=== PATIENT | female | born 2000 | race Caucasian/White ===

== ENCOUNTER → 2018-10-12 13:21 | Outpatient (CLI) | payer BC, SELFPAY ==
[2018-10-08 12:20] VITALS: BMI 21.7
--- NOTE | 2018-10-12 13:24 | US_ITS ---
STUDY: ULTRASOUND BREAST - RIGHT REASON FOR EXAM: Female, 18 years old. TECHNIQUE: Axial and longitudinal images of the RIGHT breast were performed with a high resolution ultrasound transducer. COMPARISON: None. FINDINGS: RIGHT Breast: No evidence of any masses or cyst in either breast. No significantly enlarged lymph nodes in the axillary areas on either side either. US/Breast Limited Unilateral IMPRESSION: Negative ultrasound of both breasts. Electronically Signed: Bran Santos, at 9:53 EDT Tel , Service support ,
== END ==
PROVIDERS: Referring Provider Nurse Practitioner Women's Health; Visit Provider Nurse Practitioner Women's Health
DX: N63.20 Unspecified lump in the left breast, unspecified quadrant (principal); N63.10 Unspecified lump in the right breast, unspecified quadrant
CPT/HCPCS: 76642

== ENCOUNTER → 2019-05-07 15:30 | Outpatient (CLI) | payer BC, SELFPAY ==
[2019-05-07 15:20] VITALS: BMI 22.2
[2019-05-07 16:39] LABS: NATERA MAILED SPECIMEN
[2019-05-07 17:24] LABS: Absolute Lymphocyte Count 1.85 X10^3/uL (0.83-4.51); Absolute Neutrophil Count 5.4 X10^3/uL (2.0-7.7); Basophil# 0.05 X10^3/uL; Basophil% 0.6 % (0-1); Eosinophil# 0.05 X10^3/uL; Eosinophils% 0.6 % (0-5); Hematocrit 36.5 % (37-47); Hemoglobin 12.9 g/dL (12.0-15.0); Lymphocyte # 1.85 X10^3/ul (4.0); Lymphocyte % 23.4 % (19-41); Mean Corp Hgb Conc 35.3 g/dL (32-36); Mean Corpuscular Hgb 32.7 pg (27.0-32.0); Mean Corpuscular Volume 92.4 fL (81-99); Mean Platelet Vol. 9.3 fl (6.2-12.0); Monocyte% 6.3 % (0-10); NRBC Flagged by Analyzer 0 % (0-5); Neutrophil # 5.41 X10^3/uL (2.7-7.7); Neutrophil % 68.6 % (47-70); Platelet Count 201 K/mm3 (150-450); RBC Distribution Width CV 11.8 % (11.6-14.6); RBC Distribution Width SD 39.8 fl (35.1-43.9); Red Blood Count 3.95 M/mm3 (4.2-5.4); White Blood Count 7.9 K/mm3 (4.4-11.0)
[2019-05-07 20:25] LABS: Chlamydia Trachomatis by PCR Negative (Negative); Neisserai gonorrhoeae by PCR Negative (Negative); Probe Check PASS; Sample Adequacy Control PASS; Specimen Processing Control PASS
[2019-05-08 10:45] LABS: HIV - WCH Non-Reactive (Nonreactive); Hepatitis B Surface Antigen Non-Reactive (Nonreactive); Hepatitis C Antibody Non-Reactive (Nonreactive); Rubella IgG 81.9 IU/mL
[2019-05-09 02:56] LABS: Rapid Plasmin Reagin (RPR) NONREACTIVE (NONREACTIVE)
== END ==
PROVIDERS: Referring Provider Obstetrics & Gynecology; Visit Provider Obstetrics & Gynecology
DX: Z34.81 Encounter for supervision of other normal pregnancy, first trimester (principal)
CPT/HCPCS: 36415; 85025; 86592; 86703; 86762; 86803; 86850; 86900; 86901; 87086; 87340; 87491; 87591

== ENCOUNTER → 2019-08-28 11:36 | Outpatient (CLI) | payer BC, SELFPAY ==
[2019-08-27 14:04] VITALS: BMI 22.2
[2019-08-28 12:08] LABS: Absolute Lymphocyte Count 1.47 X10^3/uL (0.83-4.51); Absolute Neutrophil Count 7.3 X10^3/uL (2.0-7.7); Basophil# 0.06 X10^3/uL; Basophil% 0.6 % (0-1); Eosinophil# 0.08 X10^3/uL; Eosinophils% 0.8 % (0-5); Hematocrit 33.3 % (37-47); Hemoglobin 11.5 g/dL (12.0-15.0); Lymphocyte # 1.47 X10^3/ul (4.0); Lymphocyte % 15.5 % (19-41); Mean Corp Hgb Conc 34.5 g/dL (32-36); Mean Corpuscular Volume 95.4 fL (81-99); Mean Platelet Vol. 8.6 fl (6.2-12.0); Monocyte# 0.53 X10^3/uL; Monocyte% 5.6 % (0-10); NRBC Flagged by Analyzer 0 % (0-5); Neutrophil # 7.26 X10^3/uL (2.7-7.7); Neutrophil % 76.8 % (47-70); Platelet Count 166 K/mm3 (150-450); RBC Distribution Width CV 12.7 % (11.6-14.6); RBC Distribution Width SD 44.1 fl (35.1-43.9); Red Blood Count 3.49 M/mm3 (4.2-5.4); White Blood Count 9.5 K/mm3 (4.4-11.0)
[2019-08-28 12:23] LABS: Glucose Challenge Gest 1H 50g 88 mg/dL (70-140)
== END ==
PROVIDERS: Referring Provider Nurse Practitioner Women's Health; Visit Provider Nurse Practitioner Women's Health
DX: Z34.90 Encounter for supervision of normal pregnancy, unspecified, unspecified trimester (principal)
CPT/HCPCS: 36415; 82950; 85025

== ENCOUNTER → 2019-10-31 15:11 | Outpatient (CLI) | payer BC, SELFPAY ==
[2019-10-31 13:57] VITALS: BMI 22.2
== END ==
PROVIDERS: Referring Provider Obstetrics & Gynecology; Visit Provider Obstetrics & Gynecology
DX: Z34.02 Encounter for supervision of normal first pregnancy, second trimester (principal)
CPT/HCPCS: 87081

== ENCOUNTER → 2019-11-11 10:49 | Outpatient (CLI) | payer BC, SELFPAY ==
[2019-11-07 14:10] VITALS: BMI 22.2
== END ==
PROVIDERS: Referring Provider Obstetrics & Gynecology; Visit Provider Obstetrics & Gynecology
DX: Z11.59 Encounter for screening for other viral diseases (principal)
CPT/HCPCS: 87635; G2023; U0003

== ENCOUNTER 2019-11-18 07:00 | Inpatient (IN) | payer BC, MEDICAID, SELFPAY ==
[2019-11-14 13:57] VITALS: BMI 27.6
[2019-11-18] VITALS (11 sets, daily range): BP systolic 117–132; BP diastolic 73–90; PULSE 62–76; TEMP 36.2–37.2; O2SAT 98–99; BMI 28.6
--- NOTE | 2019-11-18 08:00 | HP.PCM_ITS ---
- Problem List (1) Circumvallate placenta Status: Acute Qualifiers: Comment: multiple lagging long bones and growth restriction. Growth US on 10/09 AC 4% short long bones EFW 12% (2) IUGR (intrauterine growth restriction) Status: Acute Comment: US q4 wks anatomy/growth, 2x wkly BPP with wkly UA doppler @ MFM. plan IOL 39 weeks (3) PUPP (pruritic urticarial papules and plaques of ) Status: Acute Comment: hydrocortisone, offered steroid pack PRN (4) Status: Acute Qualifiers: Comment: Low risk female genetics, declined carrier and afp screening. 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 @ 39 weeks presents for IOL secondary to IUGR. OB Visit PRAVIN Calculator Estimated Delivery Date Method Current WG Current Estimate 11/24/19 LMP (Certain) 38w 4d Other Estimates 11/27/19 Manual 38w 1d CRL 3.5mm FHT 175 Expected Delivery Route/Plan Labor Preferences- labor support person: Max pain management options preferred: epidural cut cord/dad catch: cord : yes PP control planned: [] discussed possible routes of delivery and associated risks: [] special requests: [] Specific Issue/Plans flu vaccine: given tdap vaccine: given rhogam: NA LARC form signed: yes movement and labor precautions reviewed. Problem list reviewed and updated with the most current plan of care details and appropriate orders placed. Relevant counseling for the gestational age provided. Continue routine care and follow up unless otherwise noted in visit notes/problem list details Initial Weight: 125 lb Date EGA Weight BP Urine Prot Glucose FHR FuHt Pres Dilation Effaced St Visit Note 05/07/19 11w 2d 129 lb 8 oz (+4 lb 8 oz) 108/62 06/04/19 15w 2d 132 lb 8 oz (+7 lb 8 oz) 125/86 Negative Negative 140 SM- no vb cramping 07/02/19 19w 2d 137 lb (+12 lb) 118/82 Negative Negative 145 SM- no vb cramping 07/30/19 23w 2d 142 lb (+17 lb) 112/78 Negative Negative 158 23 MH-Doing well. NO VB, LOF. Good FM. Enc virtual CB classes. MH-Doing well. NO VB, LOF. Good FM. Enc virtual CB classes. 4 wk follow up US scheduled 08/27/19 27w 2d 150 lb 2 oz (+25 lb 2 oz) 118/78 Negative Negative 161 27 MH-Good FM, No VB, LOF. Will come back tomorrow for 28 wk labs. Enc CB class. Growth US 09/1109/12/19 29w 4d 149 lb (+24 lb) 100/74 Negative Negative 147 28 MH-No VB, LOF. Nl 28 wk labs. Tdap today. US today 09/24/19 31w 2d 152 lb 2 oz (+27 lb 2 oz) 104/78 Negative Negative 143 30 MH-No VB, LOF. Good FM. Seeing MFM weekly, BPP and growth US Q4w 10/10/19 33w 4d 156 lb (+31 lb) 116/70 150 33 Cephalic SM- no vb lof good fm no regular ctx 10/17/19 34w 4d 159 lb (+34 lb) 122/70 Negative Negative 140 Cephalic SM- no vb lof good fm no regular ctx. discussed pupps rash 10/24/19 35w 4d 159 lb 4 oz (+34 lb 4 oz) 116/58 Negative Negative 140 Cephalic SM- no vb lof good fm no regular ctx reassuring testing, pupps improved 10/31/19 36w 4d 160 lb 4 oz (+35 lb 4 oz) 124/80 Negative Negative 140 35 Cephalic 0 SM- discussed testing and continue 2x weekly and plan delivery at 39 weeks if reassuring 11/07/19 37w 4d 159 lb 2 oz (+34 lb 2 oz) 108/60 Negative Negative 141 36 Cephalic 0 MH: Cont testing 2Xwk. No VB, LOF. Good FM. MH: Cont testing 2Xwk with MFM. No VB, LOF. Good FM. IOL at 39 wk 11/14/19 38w 4d 161 lb (+36 lb) 122/88 Negative Negative 140 37 Cephalic 0 plan IOL 39 weeks ACOG First Trimester First Trimester: Desire for , Alcohol, Tobacco Cessation, Illicit/Recreational Drug/Substance Use, Intimate Partner Violence, Barriers to care, Unstable Housing, Communication Barriers, Environmental/Work Hazards, Anticipated Course of Care, Toxoplasmosis Precations, Use of Any medications, Sexual activity, Exercise, Dental Care, Sauna/Hot tub use, Seat Belt use, Childbirth classes/Hospital facilities, , Travel, Indications for US and Screening for Aneuploidy Second Trimester Second Trimester: Signs and Symptoms of Labor, Selecting a care provider, Reproductive Life Planning, Care Planning, Tobacco Cessation, Depression/Anxiety and Intimate Partner Violence Third Trimester Third Trimester: Pain Management Plans, Labor support person(s), Immediate Larc, Movement Monitoring and Feeding Yes ; discussed Trial of Labor after Counseling or discussed Circumcision preference Diagnostics Diagnostics Diagnostics Glucose 1 Hr 50 gm 88 mg/dL (70-140) 08/28/19 Hgb 11.5 g/dL (12.0-15.0) L 08/28/19 Hct 33.3 % (37-47) L 08/28/19 Details: HIV: Urine Culture: Sequential Screen: NIPT Screen: ROS Const Reports system reviewed and no additional complaints, except as docu Card Reports system reviewed and no additional complaints, except as docu Resp Reports system reviewed and no additional complaints, except as docu GI Reports system reviewed and no additional complaints, except as docu, Reports nausea Reports system reviewed and no additional complaints, except as docu Musc Reports system reviewed and no additional complaints, except as docu Exam Const General: cooperative, healthy appearing, comfortable, anxious HENCA Head: normal to inspection Nose: external nose normal Face and sinus: normal facial exam Neck Neck: normal visual inspection, full ROM, no lymphadenopathy Thyroid: thyroid normal Chest Chest palpation & inspection: normal inspection of the chest Resp Effort & Inspection: normal respiratory effort GI Inspection: normal to inspection Palpation: soft, other (gravid uterus) Other: vertex and appropriate size for gestational age Other: Cervical Exam: Extrem General: pedal edema Results POC Urinalysis 2 Dip (Clinic) Office Urine Glucose Negative Last Edit by Bethanie Tello on 11/14/19 14:0 2 Office Urine Protein Negative Last Edit by Bethanie Tello on 11/14/19 14:0 2 Assessment & Plan Orders Orders: POC Urinalysis 2 Dip (Clinic) Today 19 yo @ 39 weeks presents for iOL secondary to IUGR. Patient presents IOL, plan management for with Pitocin and FB after cytotec Pain management: plans epidural] GBS negative Management of any complications: IUGR- reassuring testing. I have reviewed the [facility] and made any clinically relevant updates.
[2019-11-18] MEDS: Lactated Ringers 1,000 ML 50 ML IV (09:05)
[2019-11-18 09:19] LABS: Absolute Lymphocyte Count 1.86 X10^3/uL (0.83-4.51); Absolute Neutrophil Count 6.2 X10^3/uL (2.0-7.7); Basophil# 0.04 X10^3/uL; Basophil% 0.5 % (0-1); Eosinophil# 0.07 X10^3/uL; Eosinophils% 0.8 % (0-5); Hematocrit 33.6 % (37-47); Hemoglobin 12.1 g/dL (12.0-15.0); Lymphocyte # 1.86 X10^3/ul (4.0); Mean Corpuscular Hgb 33.1 pg (27.0-32.0); Mean Corpuscular Volume 91.8 fL (81-99); Mean Platelet Vol. 9.3 fl (6.2-12.0); Monocyte# 0.66 X10^3/uL; Monocyte% 7.4 % (0-10); NRBC Flagged by Analyzer 0 % (0-5); Neutrophil # 6.18 X10^3/uL (2.7-7.7); Neutrophil % 69.7 % (47-70); Platelet Count 154 K/mm3 (150-450); RBC Distribution Width CV 12.3 % (11.6-14.6); RBC Distribution Width SD 40.7 fl (35.1-43.9); Red Blood Count 3.66 M/mm3 (4.2-5.4); White Blood Count 8.9 K/mm3 (4.4-11.0)
[2019-11-18] MEDS: miSOPROStol 25 MCG TABLET VAGINAL (09:20)
[2019-11-18] MEDS: miSOPROStol 50 MCG TABLET VAGINAL ×2 (13:45→20:02)
[2019-11-18] MEDS: 0.9% Saline Lock 10 ML Syringe IV (22:42)
[2019-11-19] VITALS (50 sets, daily range): BP systolic 92–136; BP diastolic 48–91; PULSE 60–170; RESP 15–18; TEMP 36.1–37.2; O2SAT 94–100
[2019-11-19] MEDS: 0.9% Saline Lock 10 ML Syringe IV ×2 (01:40→03:48)
[2019-11-19] MEDS: Lactated Ringers 500 ML 999 ML IV ×3 (01:42→04:36)
[2019-11-19] MEDS: 0.9% Normal Saline Single 100 ML IV.SOLN. IY (02:49)
[2019-11-19] MEDS: Ondansetron 4 MG/2 ML Vial IV ×2 (03:48→13:01)
[2019-11-19] MEDS: fentaNYL-bupivacaine (epidural) 100 ML BAG EPIDURAL (04:20)
[2019-11-19] MEDS: Terbutaline 1 MG/ML Vial 0.25 MG SC (05:27)
--- NOTE | 2019-11-19 05:30 | PCM.PN.BLA ---
Progress Note patient underwent several doses of cytotec, and made change to .5 cm, but had intermittent variables and several periods of recurrent late decels, heart bulb was placed, no pitocin was started, and afte two hours the heart bulb was removed due to recurrent variable decels and prolonged decleration, arom blood tinged fluid with 3/60/-1, fse and IUPC placed, terbutaline given. position changes and oxygen given, persistent cat II tracing with recurrent late decels recommend proceeding with immediate primary for intolerance to labor, persistent cat II tracing. STROKE Vital Signs/Narrative: Vital Signs Temp Pulse BP Pulse Ox 11/19/19 05:27 77 99 11/19/19 05:22 67 99 11/19/19 05:17 78 100 11/19/19 05:12 71 99 11/19/19 05:07 68 99 11/19/19 05:05 97.7 F L 11/19/19 05:02 72 100 11/19/19 05:00 66 117/65 11/19/19 04:57 67 100 11/19/19 04:54 64 124/74 H 11/19/19 04:52 69 100 11/19/19 04:50 71 121/70 H 11/19/19 04:47 74 11/19/19 04:45 72 129/68 H 11/19/19 04:42 77 100 11/19/19 04:39 71 121/77 H 11/19/19 04:37 85 99 11/19/19 04:35 67 111/66 11/19/19 04:32 71 99 11/19/19 04:30 71 107/52 L 11/19/19 04:27 75 97 11/19/19 04:24 71 114/64 11/19/19 04:22 76 98 11/19/19 04:19 81 119/73 11/19/19 04:17 170 H 99 11/19/19 04:14 70 125/76 H 11/19/19 04:12 74 99 11/19/19 04:09 81 136/82 H 11/19/19 04:07 72 99 11/19/19 04:04 75 136/84 H 11/19/19 04:02 83 99 11/19/19 03:57 93 99 11/19/19 02:36 97.3 F L 76 125/84 H
[2019-11-19] MEDS: Sodium Citrate/Citric Acid 30 ML UDC PO (05:31)
[2019-11-19] MEDS: Cefazolin 2 GM in 0.9% Normal Saline 100 ML IV (05:40)
[2019-11-19] MEDS: Oxytocin 30 units/NS 500 ml 30 UNITS/500 ML IV.SOLN 167 UNITS IV (06:50)
--- NOTE | 2019-11-19 06:51 | OP.PCM_ITS ---
Problem List (1) Circumvallate placenta Status: Acute Qualifiers: Comment: multiple lagging long bones and growth restriction. Growth US on 10/09 AC 4% short long bones EFW 12% (2) IUGR (intrauterine growth restriction) Status: Acute Comment: US q4 wks anatomy/growth, 2x wkly BPP with wkly UA doppler @ MFM. plan IOL 39 weeks (3) PUPP (pruritic urticarial papules and plaques of ) Status: Acute Comment: hydrocortisone, offered steroid pack PRN (4) Status: Acute Qualifiers: Comment: Low risk female genetics, declined carrier and afp screening. Normal anatomy (5) Supervision of high-risk Status: Acute Comment: PRR PRAVIN 11/24/19 girl Brea boyfrienmary Rehman COVID neg 11/10 Delivery Classification: ALFREDITO Final PRAVIN: 11/24/19 Gestational age: 39 Weeks and 2 Days nursing care partner: Anand Lee Type of Anesthesia:: Epidural Special Medications: ella Implants Used: none Date of Procedure: 11/19/19 Pre-Operative Diagnosis: nrfhts iugr remote from delivery Post-Operative Diagnosis: same Indications for : Distress Description of Procedure: The patient was placed in the dorsal supine position with leftward tilt. Patient was prepped and draped in the normal sterile fashion. Pfannenstiel skin incision was made with the scalpel and carried through to the underlying layer of fascia with the scalpel. Fascia was nicked in the midline and the incision extended laterally. The rectus bellies were dissected off superiorly and inf eriorly with out complication both bluntly. The peritoneum was entered digitally. The incision was stretched and a low transverse uterine incision was made with the scalpel. The 's head was delivered atraumatically followed by the anterior and posterior shoulders without complication the rest of the infant delivered. The cord was clamped and cut and the infant was handed off to awaiting nurse. The placenta was delivered spontaneously immediately following and was noted to be intact and have a three-vessel cord. The uterus was exteriorized cleared of all clots and debris, and the incision was closed in a double layer closure using #1 Monocryl. The ovaries and fallopian tubes were noted to be within normal limits. The uterus was returned to the maternal abdomen and gutters were cleared of all clots and debris. The peritoneum was closed with 3-0 Monocryl in a running fashion. Gloves were changed prior to fascial closure. Fascia was closed with 0 PDS in a running fashion. Subcutaneous tissue was copiously irrigated and the skin was closed with 3-0 Monocryl in a subcuticular fashion. Mepilex dressing was applied without complication. Patient was taken to recovery in stable condition. It was discussed with the patient that based on the clinical information obtained during this encounter, combined with her history, at this time I would recommend vaginal or cesareans for future deliveries if further pregnancies are desired. Amniotic Membrane Rupture Type: Artificial Amniotic Fluid Description: Clear Placenta Disposition: [facility] Fluids Replaced: crystalloid Cord Entanglement: None Cord Vessel Description: 3 Vessels Esitmated Blood Loss (ml): 500 Gender: Female (1 minute): 9 (5 minute): 9 Delayed cord clamping: Yes Antibiotic Given: Ancef 2 grams IV x1, Zithromax 500 mg/5 mL X1 Pt instructed on risks of surgery: Bleeding, Anesthesia Risks, Infection, Need for Future C-Sections, Injury to surrounding structure(s) including bowel and bladder Complications: None - Admit VTE Documentation VTE Present on Admission: No VTE Mechan Device Prophylaxis: SCD's Multi Select Codes - Urinary/Genital Urinary/Genital CPT Codes: 79955 [facility]
[2019-11-19] MEDS: Senna/Docusate Sodium 1 Tablet PO (08:57)
[2019-11-19] MEDS: Acetaminophen 500 MG Tablet 1000 MG PO ×3 (08:57→20:51)
[2019-11-19] MEDS: Lactated Ringers 1,000 ML 100 ML IV (10:04)
[2019-11-19] MEDS: Ketorolac 30 MG/ML Syringe IV ×2 (12:05→17:44)
--- NOTE | 2019-11-19 13:14 | NURSING ---
1300 pt vomiting multiple times-pt medicated bed changed
[2019-11-20 00:11] VITALS: BP 117/69; PULSE 68; RESP 16; TEMP 36.9
[2019-11-20] MEDS: Ketorolac 30 MG/ML Syringe IV ×2 (00:27→05:57)
[2019-11-20] MEDS: 0.9% Saline Lock 10 ML Syringe IV ×2 (00:27→05:57)
[2019-11-20 03:07] VITALS: BP 92/57; PULSE 59; RESP 12; TEMP 36.6
[2019-11-20] MEDS: Acetaminophen 500 MG Tablet 1000 MG PO ×4 (03:08→21:14)
[2019-11-20 05:39] LABS: Hematocrit 24.8 % (37-47); Hemoglobin 8.8 g/dL (12.0-15.0); Mean Corp Hgb Conc 35.5 g/dL (32-36); Mean Corpuscular Hgb 32.8 pg (27.0-32.0); Mean Corpuscular Volume 92.5 fL (81-99); Mean Platelet Vol. 9.2 fl (6.2-12.0); Platelet Count 112 K/mm3 (150-450); RBC Distribution Width CV 12.4 % (11.6-14.6); RBC Distribution Width SD 41.1 fl (35.1-43.9); Red Blood Count 2.68 M/mm3 (4.2-5.4); White Blood Count 15.8 K/mm3 (4.4-11.0)
[2019-11-20 08:00] VITALS: BP 91/61; PULSE 75; RESP 18; TEMP 37.1; O2SAT 98
[2019-11-20] MEDS: Senna/Docusate Sodium 1 Tablet PO (09:00)
--- NOTE | 2019-11-20 11:05 | PCM.PN.OB ---
Subjective: doing well no complaints pain controlled no CP SOB N V ambulating well tolerating po lochia moderate, going well - Physical Exam Vitals/I&O's: Vital Signs Temp Pulse Resp BP Pulse Ox 98.7 F 75 18 91/61 98 11/20/19 08:00 11/20/19 08:00 11/20/19 08:00 11/20/19 08:00 11/20/19 08:00 Oxygen Delivery Method Room Air Weight: 161 lb 13.109 oz Body Mass Index (BMI) 28.6 Intake and Output for Last 24 Hours 11/18/19 11/19/19 11/20/19 23:59 23:59 23:59 Intake Total 95.83 / 95.83 3997.50 / 3997.50 Output Total 2250 / 2250 1600 / 1600 Balance 95.83 / 95.83 1747.50 / 1747.50 -1600 / -1600 General: Alert, Oriented x3 Laboratory Results 11/20/19 05:30: WBC 15.8 H, RBC 2.68 L, Hgb 8.8 L, Hct 24.8 L, MCV 92.5, MCH 32.8 H, MCHC 35.5, RDW Std Deviation 41.1, RDW Coeff of Nando 12.4, Plt Count 112 L, MPV 9.2 Current Medications Acetaminophen (Tylenol) 1,000 mg PO Q6H NAT Last Admin: 11/20/19 09:01 Dose: 1,000 mg Documented by: Bisacodyl (Dulcolax) 10 mg RECTAL UD PRN PRN Reason: If no BM Hydrocortisone (Hytone) 1 applic TOPICAL TID PRN PRN; Protocol PRN Reason: Discomfort Naloxone HCl 4 mg/ Dextrose 504 mls @ 0 mls/hr IV .Q0M PRN; Protocol PRN Reason: To maintain Resp. rate >10 Methylergonovine Maleate (Methergine) 0.2 mg IM X1 PRN PRN Reason: Uterine Atony Naloxone HCl (Narcan) 0.02 mg IV Q1M PRN PRN Reason: RR <10 and pt unresponsive Naproxen (Naprosyn) 500 mg PO Q8 NAT Ondansetron HCl (Zofran) 4 mg IV Q4H PRN PRN PRN Reason: Nausea Last Admin: 11/19/19 13:01 Dose: 4 mg Documented by: Oxycodone HCl (Oxyir) 5 - 10 mg PO Q4H PRN PRN PRN Reason: Pain Score 4-10/10 Multivit/Folic Acid/Iron (Prenatabs Fa) 1 tablet PO DAILY@1200 NAT Prochlorperazine Edisylate (Compazine Iv) 10 mg IV Q6H PRN PRN PRN Reason: NAUSEA Senna/Docusate Sodium (Senokot-S, Viktoriya-Colace) 0 tablet PO DAILY [facility] Last Admin: 11/20/19 09:00 Dose: 2 tablet Documented by: Simethicone (Mylicon) 80 mg PO PCHS PRN PRN Reason: Indigestion/stomach pain Last Admin: 11/20/19 09:01 Dose: 80 mg Documented by: Sodium Chloride () 5 - 15 ml IV UD PRN PRN Reason: SALINE FLUSH Last Admin: 11/20/19 05:57 Dose: 10 ml Documented by: Medical Necessity - Tobacco Use Smoking Status: Never smoker Assessment/Plan All Active Problems (Last Reviewed 11/14/19 @ 13:57 by Bethanie Tello) Supervision of high-risk (Acute) PUPP (pruritic urticarial papules and plaques of ) (Acute) IUGR (intrauterine growth restriction) (Acute) Circumvallate placenta (Acute) (Acute) s/p LTCS PPD # 1 1. routine post care 2. breast feeding- support given 3. rh positive 4. rubella immune
[2019-11-20 13:30] VITALS: BP 111/71; PULSE 95; RESP 18; TEMP 36.9; O2SAT 98
--- NOTE | 2019-11-20 14:23 | NURSING ---
charting from 10am to 1430pm on 11/20/19 entered under [facility] was actually done by shanita rosales, but due to issues with log on, shanita unable to log onto [employer]. IS aware and working on problem.
[2019-11-20] MEDS: Prenatal Vits Tablet 1 TABLET PO (14:38)
[2019-11-20] MEDS: Naproxen 250 MG Tablet 500 MG PO ×2 (14:39→22:10)
[2019-11-20 20:55] VITALS: BP 113/74; BP 133/77; PULSE 77; RESP 18; TEMP 36.9
[2019-11-21 02:00] VITALS: BP 104/64; PULSE 73; RESP 18; TEMP 36.3
[2019-11-21] MEDS: Acetaminophen 500 MG Tablet 1000 MG PO ×2 (03:43→09:53)
[2019-11-21] MEDS: Naproxen 250 MG Tablet 500 MG PO (06:05)
[2019-11-21 08:50] VITALS: BP 112/70; PULSE 94; RESP 16; TEMP 37.4; O2SAT 98
[2019-11-21] MEDS: Senna/Docusate Sodium 1 Tablet PO (09:54)
[2019-11-21] MEDS: Prenatal Vits Tablet 1 TABLET PO (09:55)
--- NOTE | 2019-11-21 11:02 | NURSING ---
1058: Mallory SINGLETON [facility] RN called to inform that this patient would like to be discharged today ALFREDITO, pt has not been seen and does not have discharge instructions or orders in at this time. Mallory SINGLETON to inform Martina Peña CNP.
--- NOTE | 2019-11-21 12:49 | DCINST_ITS ---
Discharge Diet: No Restrictions Discharge Activity: May Not Drive - for 2 weeks, May not drive while taking narcotic pain medications., May Shower, May Take a Tub Bath - in 7 days May resume sexual activity in: 4-6 weeks Lifting Restrictions: 20 pounds Additional Activity Instructions:: Nothing in the vagina for 4-6 weeks. You may return to work/school in 6 weeks. Call your doctor if your incision/area has: Continuous Slow Oozing, Sudden Increased Bleeding, Increased Pain/ Swelling, Increased Redness, Foul Smelling Discharge Call your doctor if you observe: Fever of 101 or Higher, Using more than one pad per hour - for 2 hours Suture Line Care: Avoid Pulling/Pushing, Avoid Pinching/Bending Cleanse incision/area with: Keep Dressing Clean & Dry Additional Instructions: If you experience any of the following, contact your healthcare provider. * Bleeding that soaks a pad every hour for 2 hours * Fever 100.4 or higher * Unrelieved incision or abdominal pain * Swelling, redness, discharge or bleeding from your incision or episiotomy site * Your incision begins to separate * Problems urinating (including inability to urinate or burning while urinating). * Visual changes * Severe headache * Flu-like symptoms * Pain or redness in one of both of your breasts * Pain, warmth, tenderness or swelling in your legs, especially the calf area * Frequent nausea and vomiting * Symptoms of depression or anxiety If you experience any of the following, call 911 or go to the nearest Emergency Room. * Chest pain * Problems breathing * Seizure activity * Partial or complete paralysis of a body part, slurred speech, weakness or drooping of the face, or a sudden inability to walk or hold your balance Allergies/Adverse Reactions: Allergies No Known Allergies Allergy (Verified 11/18/19 08:38) Medications to take at Discharge docosahexaenoic acid 200 mg capsule 1 mg PO DAILY 05/07/19 Naproxen [Naprosyn] 250 - 500 mg PO Q8H PRN PRN #30 tab 11/19/19 Oxycodone HCl/Acetaminophen [Percocet 5-325] 1 - 2 tab PO Q6H PRN PRN 7 Days #15 tab 11/19/19 The following prescriptions were given: Naproxen [Naprosyn] 250 - 500 mg PO Q8H PRN PRN #30 tab PRN Reason: MILD PAIN Transmission Status: Received by [facility] Oxycodone HCl/Acetaminophen [Percocet 5-325] 1 - 2 tab PO Q6H PRN PRN 7 Days #15 tab PRN Reason: Pain Transmission Status: Received by [facility] Follow-Up: Call to make an appointment with your doctor for an incision check in 1-2 weeks. You will also need a 6 week post- follow up appointment. Test results from this visit will be discussed in further detail at your follow- up appointment, if applicable. Please Follow Up With: Debra Mathur MD - Call to make an appointment for an incision check in 1-2 [phone] When: You will need a post- check in 6 weeks. Primary Care Physician: Care Physician,No Primary [Primary Care Provider] -
--- NOTE | 2019-11-21 12:50 | PCM.PN.OB ---
Subjective: doing well no complaints pain controlled no CP SOB N V ambulating well tolerating po lochia moderate, going well - Physical Exam Vitals/I&O's: Vital Signs Temp Pulse Resp BP Pulse Ox 99.4 F H 94 16 112/70 98 11/21/19 08:50 11/21/19 08:50 11/21/19 08:50 11/21/19 08:50 11/21/19 08:50 Oxygen Delivery Method Room Air Weight: 161 lb 13.109 oz Body Mass Index (BMI) 28.6 Intake and Output for Last 24 Hours 11/19/19 11/20/19 11/21/19 23:59 23:59 23:59 Intake Total 3997.50 / 3997.50 Output Total 2250 / 2250 1600 / 1600 Balance 1747.50 / 1747.50 -1600 / -1600 General: Alert, Oriented x3 Current Medications Acetaminophen (Tylenol) 1,000 mg PO Q6H [facility] Last Admin: 11/21/19 09:53 Dose: 1,000 mg Documented by: Bisacodyl (Dulcolax) 10 mg RECTAL UD PRN PRN Reason: If no BM Hydrocortisone (Hytone) 1 applic TOPICAL TID PRN PRN; Protocol PRN Reason: Discomfort Naloxone HCl 4 mg/ Dextrose 504 mls @ 0 mls/hr IV .Q0M PRN; Protocol PRN Reason: To maintain Resp. rate >10 Methylergonovine Maleate (Methergine) 0.2 mg IM X1 PRN PRN Reason: Uterine Atony Naloxone HCl (Narcan) 0.02 mg IV Q1M PRN PRN Reason: RR <10 and pt unresponsive Naproxen (Naprosyn) 500 mg PO Q8 [facility] Last Admin: 11/21/19 06:05 Dose: 500 mg Documented by: Ondansetron HCl (Zofran) 4 mg IV Q4H PRN PRN PRN Reason: Nausea Last Admin: 11/19/19 13:01 Dose: 4 mg Documented by: Oxycodone HCl (Oxyir) 5 - 10 mg PO Q4H PRN PRN PRN Reason: Pain Score 4-10/10 Multivit/Folic Acid/Iron (Prenatabs Fa) 1 tablet PO DAILY@1200 [facility] Last Admin: 11/21/19 09:55 Dose: 1 tablet Documented by: Prochlorperazine Edisylate (Compazine Iv) 10 mg IV Q6H PRN PRN PRN Reason: NAUSEA Senna/Docusate Sodium (Senokot-S, Viktoriya-Colace) 0 tablet PO DAILY NAT Last Admin: 11/21/19 09:54 Dose: 2 tablet Documented by: Simethicone (Mylicon) 80 mg PO PCHS PRN PRN Reason: Indigestion/stomach pain Last Admin: 11/20/19 09:01 Dose: 80 mg Documented by: Sodium Chloride () 5 - 15 ml IV UD PRN PRN Reason: SALINE FLUSH Last Admin: 11/20/19 05:57 Dose: 10 ml Documented by: Medical Necessity - Tobacco Use Smoking Status: Never smoker Assessment/Plan All Active Problems (Last Reviewed 11/14/19 @ 13:57 by Bethanie Tello) Supervision of high-risk (Acute) PUPP (pruritic urticarial papules and plaques of ) (Acute) IUGR (intrauterine growth restriction) (Acute) Circumvallate placenta (Acute) (Acute) s/p LTCS PPD # 2 1. routine post care 2. breast feeding- support given 3. rh positive 4. rubella immune
[2019-11-21 13:21] VITALS: BP 107/74; PULSE 75; RESP 16; TEMP 36.9; O2SAT 98
--- NOTE | 2019-11-26 02:02 | DS.PCM_ITS ---
Discharge Date and Diagnosis Date of Admission: 11/18/19 Date of Discharge: 11/21/19 Hospital Course and Treatment Consultations 11/18/19 08:39 Consult: Anesthesia Routine Comment: Reason For Exam: Labor Operations: - - Summary of Care Provided: The patient is a 19 year old F presented for IOL secondary to IUGR. after cytotec and FB, AROM patient had a persistent abnormal FHT pattern and the decision to proceed with nicole LTCS due to being remote from delivery was made. patient underwent a section and had a routine recovery with a return of bowel and bladder function, was ambulating, voiding, and tolerating po, and was stable for discharge to home on POD 2 - Physical Exam Vitals/I&O's: Vital Signs Temp Pulse Resp BP Pulse Ox 98.4 F 75 16 107/74 98 11/21/19 13:21 11/21/19 13:21 11/21/19 13:21 11/21/19 13:21 11/21/19 13:21 Oxygen Delivery Method Room Air Weight: 161 lb 13.109 oz Body Mass Index (BMI) 28.6 Discharge Diet: No Restrictions Discharge Activity: May Not Drive - for 2 weeks, May not drive while taking narcotic pain medications., May Shower, May Take a Tub Bath - in 7 days May resume sexual activity in: 4-6 weeks Additional Activity Instructions:: Nothing in the vagina for 4-6 weeks. You may return to work/school in 6 weeks. Call your doctor if your incision/area has: Continuous Slow Oozing, Sudden Increased Bleeding, Increased Pain/ Swelling, Increased Redness, Foul Smelling Discharge Call your doctor if you observe: Fever of 101 or Higher, Using more than one pad per hour - for 2 hours Suture Line Care: Avoid Pulling/Pushing, Avoid Pinching/Bending Cleanse incision/area with: Keep Dressing Clean & Dry Home Medications: Medications to take at Discharge docosahexaenoic acid 200 mg capsule 1 mg PO DAILY 05/07/19 Naproxen [Naprosyn] 250 - 500 mg PO Q8H PRN PRN #30 tab 11/19/19 Following Prescriptions Were Given to Patient: Naproxen [Naprosyn] 250 - 500 mg PO Q8H PRN PRN #30 tab PRN Reason: MILD PAIN Transmission Status: Received by [facility] Primary Care Physician: Care Physician,No Primary [Primary Care Provider] - Please follow up with your Primary Care Physician in: 6 weeks Please Follow Up With: Debra Mathur MD When: You will need a post- check in 6 weeks. Medical Necessity - Tobacco Use Smoking Status: Never smoker Meaningful Use Info Meaningful Use Diagnoses (Choose all that apply): None applicable
== END 2019-11-21 13:45 | disposition home or self-care (01) | DRG 788 ==
PROVIDERS: Admitting Provider Obstetrics & Gynecology; Referring Provider Obstetrics & Gynecology; Visit Provider Obstetrics & Gynecology
DX: O76 Abnormality in fetal heart rate and rhythm complicating labor and delivery (principal); O36.5930 Maternal care for other known or suspected poor fetal growth, third trimester, not applicable or unspecified; O43.113 Circumvallate placenta, third trimester; Z3A.39 39 weeks gestation of pregnancy; Z37.0 Single live birth; O26.86 Pruritic urticarial papules and plaques of pregnancy (PUPPP)
CPT/HCPCS: 59025; 59050; 85025; 85027; 86850; 86900; 86901; 99218; 99251; J7120; A4216; G0378; G0463; J2405

== ENCOUNTER → 2020-01-02 18:25 | Outpatient (CLI) | payer BC, SELFPAY ==
[2020-01-02 14:29] VITALS: BMI 28.6
[2020-01-08 19:15] LABS: HPV Reflexed? NOT INDICATED
== END ==
PROVIDERS: Referring Provider Obstetrics & Gynecology; Visit Provider Obstetrics & Gynecology
DX: Z12.4 Encounter for screening for malignant neoplasm of cervix (principal)
CPT/HCPCS: 88175; G0145

== ENCOUNTER → 2020-06-08 16:36 | Outpatient (CLI) | payer BC, SELFPAY ==
[2020-06-08 14:44] VITALS: BMI 23.3
[2020-06-08 18:01] LABS: Amphetamine Urine VISTA NEGATIVE (<1000 ng/mL); Barbiturate Urine VISTA NEGATIVE (< 200 ng/mL); Benzodiazepine Urine VISTA NEGATIVE (< 200 ng/mL); Cocaine Urine VISTA NEGATIVE (< 300 ng/mL); Ecstacy Urine VISTA NEGATIVE (< 500 ng/mL); Methadone Urine VISTA NEGATIVE (< 300 ng/mL); PCP Urine VISTA NEGATIVE (< 25 ng/mL); THC Urine VISTA NEGATIVE (< 50 ng/mL); Vista UDS pH Range 6
[2020-06-11 12:07] LABS: Chlamydia By Nucleic Acid AMP Negative (Negative)
[2020-06-11 13:02] LABS: Gonococcus By Nucleic Acid AMP Negative (Negative)
== END ==
PROVIDERS: Referring Provider Obstetrics & Gynecology; Visit Provider Obstetrics & Gynecology
DX: Z34.80 Encounter for supervision of other normal pregnancy, unspecified trimester (principal)
CPT/HCPCS: 80307; 87086; 87088; 87491; 87591

== ENCOUNTER → 2020-06-25 13:15 | Outpatient (CLI) | payer BC, SELFPAY ==
[2020-06-08 14:44] VITALS: BMI 23.3
[2020-06-25 14:21] LABS: NATERA MAILED SPECIMEN
[2020-06-25 15:05] LABS: Absolute Lymphocyte Count 2.16 X10^3/uL (0.83-4.51); Basophil# 0.06 X10^3/uL; Basophil% 0.7 % (0-1); Eosinophil# 0.05 X10^3/uL; Eosinophils% 0.6 % (0-5); Hematocrit 39.9 % (37-47); Hemoglobin 13.6 g/dL (12.0-15.0); Lymphocyte # 2.16 X10^3/ul (4.0); Mean Corp Hgb Conc 34.1 g/dL (32-36); Mean Corpuscular Hgb 31.6 pg (27.0-32.0); Mean Corpuscular Volume 92.6 fL (81-99); Mean Platelet Vol. 9.1 fl (6.2-12.0); Monocyte# 0.37 X10^3/uL; Monocyte% 4.3 % (0-10); NRBC Flagged by Analyzer 0 % (0-5); Neutrophil # 5.97 X10^3/uL (2.7-7.7); Neutrophil % 69.1 % (47-70); Platelet Count 225 K/mm3 (150-450); RBC Distribution Width CV 12.5 % (11.6-14.6); RBC Distribution Width SD 42.2 fl (35.1-43.9); Red Blood Count 4.31 M/mm3 (4.2-5.4); White Blood Count 8.6 K/mm3 (4.4-11.0)
[2020-06-26 09:53] LABS: HIV - WCH Non-Reactive (Nonreactive); Hepatitis B Surface Antigen Non-Reactive (Nonreactive); Hepatitis C Antibody Non-Reactive (Nonreactive); Rubella IgG Reactive (Nonreactive)
== END ==
PROVIDERS: Visit Provider Obstetrics & Gynecology
DX: Z34.81 Encounter for supervision of other normal pregnancy, first trimester (principal)
CPT/HCPCS: 36415; 85025; 86703; 86762; 86803; 86850; 86900; 86901; 87340

== ENCOUNTER → 2020-10-30 13:35 | Outpatient (CLI) | payer BC, SELFPAY ==
[2020-09-30 08:25] VITALS: BMI 25.9
[2020-10-30 15:42] LABS: Absolute Lymphocyte Count 2.18 X10^3/uL (0.83-4.51); Absolute Neutrophil Count 5.8 X10^3/uL (2.0-7.7); Basophil# 0.05 X10^3/uL; Basophil% 0.6 % (0-1); Eosinophil# 0.07 X10^3/uL; Eosinophils% 0.8 % (0-5); Hematocrit 33.4 % (37-47); Hemoglobin 11.5 g/dL (12.0-15.0); Lymphocyte # 2.18 X10^3/ul (0.83-4.51); Lymphocyte % 24.9 % (19-41); Mean Corp Hgb Conc 34.4 g/dL (32-36); Mean Corpuscular Hgb 31.6 pg (27.0-32.0); Mean Corpuscular Volume 91.8 fL (81-99); Mean Platelet Vol. 8.8 fl (6.2-12.0); Monocyte% 6.9 % (0-10); NRBC Flagged by Analyzer 0 % (0-5); Neutrophil # 5.77 X10^3/uL (2.7-7.7); Neutrophil % 65.9 % (47-70); Platelet Count 183 K/mm3 (150-450); RBC Distribution Width CV 12.5 % (11.6-14.6); RBC Distribution Width SD 41.1 fl (35.1-43.9); Red Blood Count 3.64 M/mm3 (4.2-5.4); White Blood Count 8.8 K/mm3 (4.4-11.0)
[2020-10-30 16:09] LABS: Glucose Challenge Gest 1H 50g 79 mg/dL (70-140)
== END ==
PROVIDERS: Obstetrics & Gynecology; Referring Provider Obstetrics & Gynecology; Visit Provider Obstetrics & Gynecology
DX: Z34.80 Encounter for supervision of other normal pregnancy, unspecified trimester (principal)
CPT/HCPCS: 36415; 82950; 85025

== ENCOUNTER → 2020-12-16 12:37 | Outpatient (CLI) | payer BC, SELFPAY ==
--- NOTE | 2020-12-16 12:40 | US_ITS ---
STUDY: SECOND AND THIRD TRIMESTER OBSTETRICAL ULTRASOUND REASON FOR EXAM: Female, 20 years old history IUGR LMP: 04/08/2020. TECHNIQUE: Transabdominal TECHNICAL QUALITY: Adequate. PRIOR ULTRASOUND: None. FINDINGS: There is a single intrauterine fetus. The fetus is in a cephalic presentation. There is demonstrated cardiac activity with a heart rate of 132 bpm. There is a normal amniotic fluid volume. The largest amniotic fluid pocket measures 4.2 cm. The amniotic fluid index (SARA) is 10.1 cm. The placenta is anterior in location and is not low lying. There are Grade 1 placental changes. The cervix measures 7.2 cm in length. The adnexal regions are not visualized. BIOMETRY: BPD: 7.95 cm: 31 weeks, 6 days HC: 30.19 cm: 33 weeks, 3 days AC: 30.53 cm: 34 weeks, 3 days FL: 6.7 cm: 34 weeks, 3 days CI: 76% FL/BPD: 84% FL/HC: FL/AC: 22% HC/AC: 0.99 age by current US: 33 weeks, 2 days. PRAVIN by current US: 02/01/2021. Estimated weight: 2363 grams, +/- 354 grams, 11 %. Age by LMP: 36 weeks, 0 days. PRAVIN by LMP: 01/13/2021. US/OB Limited With Biometrics IMPRESSION: Single live intrauterine gestation with a mean gestational age of 33 weeks and 2 days. Electronically Signed: Julian Perdomo MD at 13:42 EDT , Service support ,
== END ==
PROVIDERS: Referring Provider Obstetrics & Gynecology; Visit Provider Obstetrics & Gynecology
DX: Z34.80 Encounter for supervision of other normal pregnancy, unspecified trimester (principal)
CPT/HCPCS: 76816; 87081

== ENCOUNTER 2021-01-07 09:45 | Inpatient (IN) | payer BC, MEDICAID, SELFPAY ==
[2020-10-30 15:45] VITALS: BMI 25.9
--- NOTE | 2021-01-03 23:25 | HP.PCM.OB_ITS ---
HPI - General HPI Narrative ROMAN ELI, is a 20 F who presents for RLTCS. Maternal Data Information PRAVIN Calculator Estimated Delivery Date Method Current WG Current Estimate 01/13/21 LMP (Certain) 38w 4d Other Estimates 01/12/21 Ultrasound #1 38w 5d PFSH PFSH Medical History (Updated 01/01/21 @ 15:[address] China Anderson MD) Asthma Back pain Chest pain Severe headache Home Medications docosahexaenoic acid 200 mg capsule 1 mg PO DAILY 05/07/19 [History Last Taken Unknown] Allergy/AdvReac Type Severity Reaction Status Date / Time No Known Allergies Allergy Verified 01/01/21 15:40 Family History Grandmother Diabetes Hypertension Grandfather Diabetes Hypertension Father Hypertension Surgical History delivery delivered Social History number of children: 1 current occupational status: employed current occupation: [employer] alcohol intake: never substance use type: does not use caffeine: No what type of physical activity do you participate in: running and weight training frequency: 5-6 times per week seatbelt use: always do you feel safe at home: Yes 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 Date Name GA/Weeks Outcome Route Bth Weight Gen Labor Lgth Anesthesia Del Locatn Provider FOB 11/18/19 Mihla 39 live - full term 5lbs 13oz Female epidural [facility] Kevan Rehman Delivery Date: 11/18/19 Circumvallate placenta; IUGR; STAT C/S d/t distress Mallory Andersen Visit Details Expected Delivery Route/Plan plan RLTCS with outes of delivery and associated risks: [] special requests: [] Plans Covid status: non immune flu vaccine: [] tdap vaccine: given rhogam: na LARC form signed: 11/27 movement and labor precautions reviewed. Problem list reviewed and updated with the most current plan of care details and appropriate orders placed. Relevant counseling for the gestational age provided. Continue routine care and follow up unless otherwise noted in visit notes/problem list details OB Flowsheet Initial Weight: 40 lb Date -?-?-?-?-?-?-?-?-?-?-?-?- EGA Weight BP Urine Prot -?-?-?-?-?-?-?-?-?-?-?-?- Glucose FHR FuHt Pres Dilation -?-?-?-?-?-?-?-?-?-?-?-?- Effaced St Visit Note 06/08/20 -?-?-?-?-?-?-?-?-?-?-?-?- 8w 5d 136 lb 4 oz (+96 lb 4 oz) 128/76 -?-?-?-?-?-?-?-?-?-?-?-?- 175 -?-?-?-?-?-?-?-?-?-?-?-?- GP - CRL 20mm co nsistent with LMP. 07/06/20 -?-?-?-?-?-?-?-?-?-?-?-?- 12w 5d 139 lb 6 oz (+99 lb 6 oz) 124/88 Negative -?-?-?-?-?-?-?-?-?-?-?-?- Negative 160 -?-?-?-?-?-?-?-?-?-?-?-?- SM- no vb aaron ng. PRR 08/05/20 -?-?-?-?-?-?-?-?-?-?-?-?- 17w 0d 144 lb 8 oz (+104 lb 8 oz) 100/62 Negative -?-?-?-?-?-?-?-?-?-?-?-?- Negative 158 -?-?-?-?--?-?-?-?-?-?-?-?- MH-No Vb, LOF. A natomy US scheduled 08/31/20 -?-?-?-?-?-?-?-?-?-?-?-?- 20w 5d 146 lb (+106 lb) 114/62 Negative -?-?-?-?-?-?-?-?-?-?-?-?- Negative 140 -?-?-?-?-?-?-?-?-?-?-?-?- SM- no vb lof go od fm no regular ctx 09/30/20 -?-?-?-?-?-?-?-?-?-?-?-?- 25w 0d 151 lb 2 oz (+111 lb 2 oz) 110/80 Negative -?-?-?-?-?-?-?-?-?-?-?-?- Negative 130 25 -?-?-?-?-?-?-?-?-?-?-?-?- GP - no LOF, VB, DFM, ctx. GCT next visit. 10/30/20 -?-?-?-?-?-?-?-?-?-?-?-?- 29w 2d 155 lb (+115 lb) 110/66 -?-?-?-?-?-?-?-?-?-?-?-?- 150 29 -?-?-?-?-?-?-?-?-?-?-?-?- SM- no vb lof go od fm no regular ctx, cbc gct tdap, schedule rltcs 11/12/20 -?-?-?-?-?-?-?-?-?-?-?-?- 31w 1d 158 lb (+118 lb) 122/60 Negative -?-?-?-?-?-?-?-?-?-?-?-?- Negative 140 31 -?-?-?-?-?-?-?-?-?-?-?-?- SM- no vb lof go od fm no regular ctx 11/27/20 -?-?-?-?-?-?-?-?-?-?-?-?- 33w 2d 159 lb 2 oz (+119 lb 2 oz) 122/76 Negative -?-?-?-?-?-?-?-?-?-?-?-?- Negative 125 33 -?-?-?-?-?-?-?-?-?-?-?-?- GP - no LOF, VB, DFM, ctx. LARC form signed. Discussed PPBC. 12/10/20 -?-?-?-?-?-?-?-?-?-?-?-?- 35w 1d 161 lb (+121 lb) 106/68 Negative -?-?-?-?-?-?-?-?-?-?-?-?- Negative 130 34 -?-?-?-?-?-?-?-?-?-?-?-?- SM- no vb lof go od fm no regular ctx growth us 12/16/20 -?-?-?-?-?-?-?-?-?-?-?-?- 36w 0d 161 lb (+121 lb) 110/82 -?-?-?-?-?-?-?-?-?-?-?-?- 130 35 -?-?-?-?-?-?-?-?-?-?-?-?- GP - no LOF, VB, DFM, ctx. Growth US done today. GBS done today. 12/24/20 -?-?-?-?-?-?-?-?-?-?-?-?- 37w 1d 163 lb (+123 lb) 120/82 Negative -?-?-?-?-?-?-?-?-?-?-?-?- Negative 145 37 -?-?-?-?-?-?-?-?-?-?-?-?- GP - no LOF, VB, DFM, ctx. GBS negative. 12/29/20 -?-?-?-?-?-?-?-?-?-?-?-?- 37w 6d 162 lb 2 oz (+122 lb 2 oz) 110/64 Negative -?-?-?-?-?-?-?-?-?-?-?-?- Negative 147 0 -?-?-?-?-?-?-?-?-?-?-?-?- -work in for p elvic pressure and low back ache. Noted FHT decel to 110 while checking. NST done: reactive. Keep appt in 3 days. Reviewed S&S labor and kick counts. 01/01/21 -?-?-?-?-?-?-?-?-?-?-?-?- 38w 2d 162 lb 4 oz (+122 lb 4 oz) 112/88 Negative -?-?-?-?-?-?-?-?-?-?-?-?- Negative 115 120 38 -?-?-?-?-?-?-?-?-?-?-?-?- GP - no LOF, VB, DFM, ctx. Low baseline - NST done and reactive. 01/07/21 -?-?-?-?-?-?-?-?-?-?-?-?- 39w 1d -?-?-?-?-?-?-?-?-?-?-?-?- -?-?-?-?-?-?-?-?-?-?-?-?- ROS Constitutional Constitutional: Reports systems reviewed and no addt'l complaints, except as documented Eyes Eyes: Denies change in vision ENT HEENT: Reports systems reviewed and no addt'l complaints, except as documented; Denies headache(s) Cardiovascular Cardiovascular: Reports systems reviewed and no addt'l complaints, except as documented; Denies chest pain or dyspnea Respiratory/Chest Respiratory/Chest: Reports systems reviewed and no addt'l complaints, except as documented Gastrointestinal Gastrointestinal: Reports systems reviewed and no addt'l complaints, except as documented; Denies abdominal pain Genitourinary Genitourinary: Reports systems reviewed and no addt'l complaints, except as documented, contractions Details: present (irregular) and movement Details: present; Denies dysuria or genital lesions Musculoskeletal Musculoskeletal: Reports systems reviewed and no addt'l complaints, except as documented Neurologic Neurologic: Reports systems reviewed and no addt'l complaints, except as documented Endocrine Endocrinology: Reports systems reviewed and no addt'l complaints, except as documented Vital Signs Vital Signs Vital Signs: Weight Body Mass Index (BMI) 25.9 Physical Exam Const alert, oriented x3, no apparent distress and healthy appearing HEENT normocephalic and moist oral mucous membranes Head and Scalp: atraumatic Neck full ROM, no lymphadenopathy, supple and thyroid normal General: trachea midline Lymph Lymphatic: no lymphadenopathy noted Chest inspection of chest normal Resp normal respiratory effort Cardio regular rate GI normal to inspection, nondistended, normoactive bowel sounds, soft to palpation and non-tender Inspection: gravid external exam normal Manual OB Exam: estimated gestational size appropriate, presentation cephalic, dilated, effaced and station Extremity normal to inspection General Extremity: Negative for edema Skin no rashes or lesions noted Neuro no focal motor deficits and deep tendon reflexes 2+ bilaterally Motor Exam: strength 5/5 throughout and clonus absent Psych mental status grossly normal Labs Labs Labs: Blood Type A POSITIVE Antibody Screen NEGATIVE Hct 33.4 % (37-47) L Hgb 11.5 g/dL (12.0-15.0) L Obstetrics US Rubella IgG Antibody Reactive (Nonreactive) Hep Bs Antigen Non-Reactive (Nonreactive) Neisseria gonorrhoeae DNA (JULIÁN) Negative (Negative) HIV 1&2 Antibody Non-Reactive (Nonreactive) C.trachomatis DNA (PCR) Negative (Negative) Glucose 1 Hr 50 gm 79 mg/dL (70-140) Rhogam given: No Assessment & Plan (1) LGSIL (low grade squamous intraepithelial dysplasia): COMMENT: repeat pap in 1 year (at visit) (2) : QUALIFIERS: Weeks of gestation: 38 weeks Qualified Code(s): Z3A.38 - 38 weeks gestation of COMMENT: declines carrier, NIPT low risk. declines AFP screen. NL anatomy RLTCS 01/07 @ 12; GBS NEG (3) Supervision of other normal : COMMENT: PRR PRAVIN: 01/13/21 ZACHERY Luque PC: Aj BF: Max (4) H/O section: COMMENT: STAT d/t distress (5) Short interval between pregnancies affecting , antepartum: COMMENT: previous delivery 10/2019. (6) H/O intrauterine growth restriction in prior , currently : COMMENT: circumvallate placenta, multiple lagging long bones in previous , plan growth at 36 weeks- NORMAL US PLAN: plan RLTCS
[2021-01-07] VITALS (19 sets, daily range): BP systolic 99–121; BP diastolic 53–81; PULSE 59–82; RESP 16–18; TEMP 36.2–36.8; O2SAT 97–100; BMI 28.0
[2021-01-07] MEDS: Lactated Ringers 1,000 ML 999 ML IV (10:30)
--- NOTE | 2021-01-07 10:44 | NURSING ---
FHR per doppler, 140
[2021-01-07 10:57] LABS: Absolute Neutrophil Count 6.5 X10^3/uL (2.0-7.7); Basophil# 0.06 X10^3/uL; Basophil% 0.7 % (0-1); Eosinophil# 0.12 X10^3/uL; Eosinophils% 1.3 % (0-5); Hematocrit 31.6 % (37-47); Hemoglobin 10.6 g/dL (12.0-15.0); Lymphocyte % 18.9 % (19-41); Mean Corp Hgb Conc 33.5 g/dL (32-36); Mean Corpuscular Hgb 30.2 pg (27.0-32.0); Mean Platelet Vol. 9.9 fl (6.2-12.0); Monocyte# 0.59 X10^3/uL; Monocyte% 6.6 % (0-10); NRBC Flagged by Analyzer 0 % (0-5); Neutrophil # 6.46 X10^3/uL (2.7-7.7); Neutrophil % 71.9 % (47-70); Platelet Count 130 K/mm3 (150-450); RBC Distribution Width CV 12.4 % (11.6-14.6); RBC Distribution Width SD 40.2 fl (35.1-43.9); Red Blood Count 3.51 M/mm3 (4.2-5.4)
--- NOTE | 2021-01-07 11:00 | NURSING ---
1044, berhane CBC and type and screen from right AC
[2021-01-07] MEDS: Acetaminophen 500 MG Tablet 1000 MG PO ×3 (11:01→22:49)
[2021-01-07] MEDS: Lactated Ringers 1,000 ML 150 ML IV (11:21)
[2021-01-07] MEDS: Sodium Citrate/Citric Acid 30 ML UDC PO (11:45)
[2021-01-07] MEDS: Cefazolin 2 GM in 0.9% Normal Saline 100 ML IV (12:11)
--- NOTE | 2021-01-07 12:16 | OP.PCM_ITS ---
Assessment & Plan (1) H/O section: COMMENT: STAT d/t distress (2) H/O intrauterine growth restriction in prior , currently : COMMENT: circumvallate placenta, multiple lagging long bones in previous , plan growth at 36 weeks- NORMAL US (3) LGSIL (low grade squamous intraepithelial dysplasia): COMMENT: repeat pap in 1 year (at visit) (4) : QUALIFIERS: Weeks of gestation: 38 weeks Qualified Code(s): Z3A.38 - 38 weeks gestation of COMMENT: declines carrier, NIPT low risk. declines AFP screen. NL anatomy RLTCS 01/07 @ 12; GBS NEG (5) Short interval between pregnancies affecting , antepartum: COMMENT: previous delivery 10/2019. (6) Supervision of other normal : COMMENT: PRR PRAVIN: 01/13/21 GIRL [place] PC: Aj BF: Max Maternal Data Information PRAVIN Calculator Estimated Delivery Date Method Current WG Current Estimate 01/13/21 LMP (Certain) 39w 1d Other Estimates 01/12/21 Ultrasound #1 39w 2d Final PRAVIN Source: LMP Gestational age: 39 Details Operative Information Date of Procedure: 01/07/21 Pre-Operative Diagnosis: see AP Post-Operative Diagnosis: same Indications for : Repeat Elective Classification: Scheduled Procedure Type: low transverse Type of Anesthesia: Spinal Special Medications: none Antibiotic Given: Ancef 2 grams IV x1 Drain: Calero to straight drain Fluids Replaced: crystalloid Findings Description of Procedure: The patient was placed in the dorsal supine position with leftward tilt. Patient was prepped and draped in the normal sterile fashion. Pfannenstiel skin incision was made with the scalpel and carried through to the underlying layer of fascia with the scalpel. Fascia was nicked in the midline and the incision extended laterally. The rectus bellies were dissected off superiorly and inferiorly with out complication both sharply and bluntly. The peritoneum was entered digitally. The incision was stretched and a low transverse uterine incision was made with the scalpel. The 's head was delivered atraumatically followed by the anterior and posterior shoulders without complication the rest of the delivered. The cord was clamped and cut and the was handed off to awaiting nurse. The placenta was delivered spontaneously immediately following and was noted to be intact and have a three- vessel cord. The uterus was exteriorized cleared of all clots and debris, and the incision was closed in a double layer closure using #1 Monocryl. The ovaries and fallopian tubes were noted to be within normal limits. The uterus was returned to the maternal abdomen and gutters were cleared of all clots and debris. The peritoneum was closed with 3-0 Monocryl in a running fashion. Gloves were changed prior to fascial closure. Fascia was closed with 0 PDS in a running fashion. Subcutaneous tissue was copiously irrigated and the skin was closed with 3-0 Monocryl in a subcuticular fashion. Mepilex dressing was applied without complication. Patient was taken to recovery in stable condition. It was discussed with the patient that based on the clinical information obtained during this encounter, combined with her history, at this time I would recommend cesareans or vaginal for future deliveries if further pregnancies are desired. Amniotic Membrane Rupture Type: Artificial Amniotic Fluid Description: Clear Placental Delivery Description: Spontaneous Placenta Disposition: [facility] Cord Vessel Description: 3 Vessels Cord Entanglement: None Delayed Cord Clamping: Yes Complications Risks of Surgery Discussed w/Patient: Bleeding, Infection, Need for Future C- Sections and Injury to surrounding structure(s) including bowel and bladder Complications: none Admit VTE Documentation VTE Present on Admission: No VTE Mechan Device Prophylaxis: SCD's Procedures Urinary/Genital [id number]: [id number] Delivery [facility]
--- NOTE | 2021-01-07 12:17 | PCM.DC ---
Discharge Instructions Diet Discharge Diet: No restrictions Activity Discharge Activity: May Not Drive (for 2 weeks or while taking narcotic pain medications.), May Shower and May Take a Tub Bath (in 7 days) May shower in (days): 0 May resume sexual activity in: 4-6 weeks Weight Bearing Status: Full weight bearing Lifting Restrictions: 20 pounds Dressing / Incision Call your doctor if your incision/area has: Continuous Slow Oozing, Sudden Increased Bleeding, Increased Pain/ Swelling, Increased Redness and Foul Smelling Discharge Call your doctor if you observe: Fever of 101 or Higher and Using more than 1 pad per hour (for 2 hours) Suture Line Care: Avoid Pulling/Pushing and Avoid Pinching/Bending Cleanse incision/area with: Soap & Water and Keep Dressing Clean & Dry Follow Up Care Please Follow Up With: Debra Mathur MD When: Call [phone] to make an appointment for an incision check in 1-2 weeks. Test Results: Test results from this visit will be discussed in further detail at your follow-up appointment, if applicable. Discharge Plan Admission Admit Date/Time: 01/07/21 09:45 Primary Reason for Your Visit: csection Attending Provider: Debra Mathur Discharge Orders/Prescriptions Prescriptions: New oxycodone-acetaminophen [Percocet] 5-325 mg tablet 1 tab PO Q6H PRN (Reason: pain) 7 Days Qty: 20 RF: 0 naproxen [naproxen] 500 MG tablet 500 mg PO BID PRN PRN (Reason: Pain) Qty: 30 RF: 1 Continued DHA 200 mg capsule 1 mg PO DAILY RF: 0 Disposition Disposition (needs filled in before D/C Order can be placed): Home, Self Care
--- NOTE | 2021-01-07 13:55 | NURSING ---
1343 adding to OP record. Durmabond used on surgical site per SM
[2021-01-07] MEDS: Oxytocin 30 units/NS 500 ml 30 UNITS/500 ML IV.SOLN 167 UNITS IV (14:04)
[2021-01-07] MEDS: Ketorolac 30 MG/ML Syringe IV ×2 (14:18→20:16)
--- NOTE | 2021-01-07 14:45 | NURSING ---
awaiting duramorph order. pt is alert and oriented. no urinary symptoms, denies itching or nausea.
--- NOTE | 2021-01-07 15:08 | NURSING ---
report given to MANI RUIZ who is assuming care at this time
--- NOTE | 2021-01-07 15:19 | NURSING ---
This nursing support worker assisted Jose Juan Horn student nurse in started the patient's IV at 1030.
--- NOTE | 2021-01-07 18:04 | NURSING ---
pressure drsg removed. mepilex clean, dry and intact.
[2021-01-07] MEDS: Lactated Ringers 1,000 ML 100 ML IV (18:05)
[2021-01-07] MEDS: 0.9% Saline Lock 10 ML Syringe IV (18:05)
[2021-01-07] MEDS: Ondansetron 4 MG/2 ML Vial IV (21:12)
[2021-01-08 00:20] VITALS: BP 100/59; PULSE 67; RESP 16; TEMP 36.4; O2SAT 99
[2021-01-08] MEDS: Ketorolac 30 MG/ML Syringe IV ×2 (02:13→08:23)
[2021-01-08] MEDS: 0.9% Saline Lock 10 ML Syringe IV ×2 (02:13→08:28)
[2021-01-08 03:30] VITALS: BP 96/60; PULSE 68; RESP 16; TEMP 36.3; O2SAT 97
[2021-01-08] MEDS: Acetaminophen 500 MG Tablet 1000 MG PO ×2 (05:18→11:00)
[2021-01-08 05:36] LABS: Hematocrit 27.6 % (37-47); Hemoglobin 9.2 g/dL (12.0-15.0); Mean Corp Hgb Conc 33.3 g/dL (32-36); Mean Corpuscular Hgb 30.5 pg (27.0-32.0); Mean Corpuscular Volume 91.4 fL (81-99); Mean Platelet Vol. 9.7 fl (6.2-12.0); Platelet Count 119 K/mm3 (150-450); RBC Distribution Width CV 12.6 % (11.6-14.6); RBC Distribution Width SD 41.4 fl (35.1-43.9); Red Blood Count 3.02 M/mm3 (4.2-5.4); White Blood Count 10.8 K/mm3 (4.4-11.0)
[2021-01-08 08:15] VITALS: BP 118/80; PULSE 67; RESP 16; TEMP 36.4
--- NOTE | 2021-01-08 09:16 | PN.OBGYN_ITS ---
Subjective Subjective Patient doing well without complaints. Tolerating PO. Ambulating and voiding without difficulty. feeding well. Denies chest pain, shortness of breath, calf pain/swelling, fevers, chills, lightheadedness. Objective Data Objective Data Vital Signs: Vital Signs Temp Pulse Resp BP Pulse Ox 97.5 F L 67 16 118/80 97 01/08/21 08:15 01/08/21 08:15 01/08/21 08:15 01/08/21 08:15 01/08/21 03:30 Oxygen Delivery Method Room Air Weight: 158 lb 8.198 oz Body Mass Index (BMI) 28.0 Intake & Output: Intake and Output for Last 24 Hours 01/06/21 01/07/21 01/08/21 23:59 23:59 23:59 Intake Total 1740 / 1740 625 / 625 Output Total 320 / 320 875 / 875 Balance 1420 / 1420 -250 / -250 Lab / Micro Data Result Diagrams: 01/08/21 05:28 Labs: Laboratory Results - last 24 hr 01/07/21 10:44: WBC 9.0, RBC 3.51 L, Hgb 10.6 L, Hct 31.6 L, MCV 90.0, MCH 30.2, MCHC 33.5, RDW Std Deviation 40.2, RDW Coeff of Nando 12.4, Plt Count 130 L, MPV 9.9, Immature Gran % (Auto) 0.600, Neut % (Auto) 71.9 H, Lymph % (Auto) 18.9 L, Overton % (Auto) 6.6, Eos % (Auto) 1.3, Baso % (Auto) 0.7, Absolute Neuts (auto) 6.5, Absolute Lymphs (auto) 1.70, Nucleated RBC % 0 01/07/21 10:44: Blood Type A POSITIVE, Antibody Screen NEGATIVE 01/08/21 05:28: WBC 10.8, RBC 3.02 L, Hgb 9.2 L, Hct 27.6 L, MCV 91.4, MCH 30.5, MCHC 33.3, RDW Std Deviation 41.4, RDW Coeff of Nando 12.6, Plt Count 119 L, MPV 9.7 Micro: Microbiology 01/07/21 10:35 Nasal Secretion SARS-CoV-2 Antigen (Rapid) - Final ROS Constitutional Constitutional: Reports systems reviewed and no addt'l complaints, except as documented Cardiovascular Cardiovascular: Reports systems reviewed and no addt'l complaints, except as documented Respiratory/Chest Respiratory/Chest: Reports systems reviewed and no addt'l complaints, except as documented Gastrointestinal Gastrointestinal: Reports systems reviewed and no addt'l complaints, except as documented Physical Exam Const alert, oriented x3 and no apparent distress HEENT Head and Scalp: atraumatic Resp normal respiratory effort GI soft to palpation and non-tender Inspection: incision intact, healing well and drainage (none) Bimanual Exam - Vag & Uterus: uterus non-tender Uterus Palpation: uterus fundus firm (below Umbilicus) Assessment & Plan (1) delivery delivered: COMMENT: RLTCS 37 girl Ene PLAN: s/p LTCS PPD # 1 1. routine post care 2. breast feeding- support given 3. rh positive 4. rubella immune
[2021-01-08] MEDS: Senna/Docusate Sodium 1 Tablet PO (10:08)
[2021-01-08] MEDS: Prenatal Vits Tablet 1 TABLET PO (11:48)
[2021-01-08 11:57] VITALS: BP 113/79; PULSE 74; RESP 16; TEMP 36.5
--- NOTE | 2021-01-11 13:12 | HP.PCM.OB_ITS ---
HPI - General General Date of Admission: 01/07/21 HPI Narrative ROMAN ELI, is a 20 F who presents for RLTCS Maternal Data Information PRAVIN Calculator Estimated Delivery Date Method Current [facility] PFS Medical History (Updated 01/11/21 @ 13:11 by Rosalie Junior) Asthma Back pain Chest pain Severe headache Home Medications docosahexaenoic acid 200 mg capsule 1 mg PO DAILY 05/07/19 [History Last Taken Unknown] naproxen 500 mg PO BID PRN PRN #30 tab 01/07/21 [Rx Last Taken Unknown] oxycodone-acetaminophen [Percocet] 1 tab PO Q6H PRN 7 Days #20 tab 01/07/21 [Rx Last Taken Unknown] Allergy/AdvReac Type Severity Reaction Status Date / Time No Known Allergies Allergy Verified 01/07/21 10:02 Family History Grandmother Diabetes Hypertension Grandfather Diabetes Hypertension Father Hypertension Surgical History (Updated 01/07/21 @ 12:[address] 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 Date Name GA/Weeks Outcome Route Bth Weight Infant Gen Labor Lgth Anesthesia Del Locatn Provider FOB 11/18/19 Mimark 39 live - full term 5lbs 13oz Female epidural [facility] Kevan Max 01/07/21 39 live - full term [facility] Kevan Delivery Date: 11/18/19 Circumvallate placenta; IUGR; STAT C/S d/t distress Mallory Andersen Delivery Date: 01/07/21 No notes to display Visit Details Expected Delivery Route/Plan plan RLTCS with Sm outes of delivery and associated risks: [] special requests: [] Plans Covid status: non immune flu vaccine: [] tdap vaccine: given rhogam: na LARC form signed: 11/27 movement and labor precautions reviewed. Problem list reviewed and updated with the most current plan of care details and appropriate orders placed. Relevant counseling for the gestational age provided. Continue routine care and follow up unless otherwise noted in visit notes/problem list details OB Flowsheet Initial Weight: 40 lb Date -?-?-?-?-?-?-?-?-?-?-?-?- EGA Weight BP Urine Prot -?-?-?-?-?-?-?-?--?-?-?-?- Glucose FHR FuHt Pres Dilation -?-?-?-?-?-?-?-?-?-?-?-?- Effaced St Visit Note 06/08/20 -?-?-?-?-?-?-?-?-?-?-?-?- 8w 5d 136 lb 4 oz (+96 lb 4 oz) 128/76 -?-?-?-?-?-?-?-?-?-?-?-?- 175 -?-?-?-?-?-?-?-?-?-?-?-?- GP - CRL 20mm co nsistent with LMP. 07/06/20 -?-?-?-?-?-?-?-?-?-?-?-?- 12w 5d 139 lb 6 oz (+99 lb 6 oz) 124/88 Negative -?-?-?-?-?-?-?-?-?-?-?-?- Negative 160 -?-?-?-?-?-?-?--?-?-?-?-?- SM- no vb aaron ng. PRR 08/05/20 -?-?-?-?-?-?-?-?-?-?-?-?- 17w 0d 144 lb 8 oz (+104 lb 8 oz) 100/62 Negative -?-?-?-?-?-?-?-?-?-?-?-?- Negative 158 -?-?-?-?-?-?-?-?-?-?-?-?- MH-No Vb, LOF. A natomy US scheduled 08/31/20 -?-?-?-?-?-?-?-?-?-?-?-?- 20w 5d 146 lb (+106 lb) 114/62 Negative -?-?-?-?-?-?-?-?-?-?-?-?- Negative 140 -?-?-?-?-?-?-?-?-?-?-?-?- SM- no vb lof go od fm no regular ctx 09/30/20 -?-?-?-?-?-?-?-?-?-?-?-?- 25w 0d 151 lb 2 oz (+111 lb 2 oz) 110/80 Negative -?-?-?-?-?-?-?-?-?-?-?-?- Negative 130 25 -?-?-?-?-?-?-?-?-?-?-?-?- GP - no LOF, VB, DFM, ctx. GCT next visit. 10/30/20 -?-?-?-?-?-?-?-?-?-?-?-?- 29w 2d 155 lb (+115 lb) 110/66 -?-?-?-?-?-?-?-?-?-?-?-?- 150 29 -?-?-?-?-?-?-?-?-?-?-?-?- SM- no vb lof go od fm no regular ctx, cbc gct tdap, schedule rltcs 11/12/20 -?-?-?-?-?-?-?-?-?-?-?-?- 31w 1d 158 lb (+118 lb) 122/60 Negative -?-?-?-?-?-?-?-?-?-?-?-?- Negative 140 31 -?-?-?-?-?-?-?-?-?-?-?-?- SM- no vb lof go od fm no regular ctx 11/27/20 -?-?-?-?-?-?-?-?-?-?-?-?- 33w 2d 159 lb 2 oz (+119 lb 2 oz) 122/76 Negative -?-?-?-?-?-?-?-?-?-?-?-?- Negative 125 33 -?-?-?-?-?-?-?-?-?-?-?-?- GP - no LOF, VB, DFM, ctx. LARC form signed. Discussed PPBC. 12/10/20 -?-?-?-?-?-?-?-?-?-?-?-?- 35w 1d 161 lb (+121 lb) 106/68 Negative -?-?-?-?-?-?-?-?-?-?-?-?- Negative 130 34 -?-?-?-?-?-?-?-?-?-?-?-?- SM- no vb lof go od fm no regular ctx growth us 12/16/20 -?-?-?-?-?-?-?-?-?-?-?-?- 36w 0d 161 lb (+121 lb) 110/82 -?-?-?-?-?-?-?-?-?-?-?-?- 130 35 -?-?-?-?-?-?-?-?-?-?-?-?- GP - no LOF, VB, DFM, ctx. Growth US done today. GBS done today. 12/24/20 -?-?-?-?-?-?-?-?-?-?-?-?- 37w 1d 163 lb (+123 lb) 120/82 Negative -?-?-?-?-?-?-?-?-?-?-?-?- Negative 145 37 -?-?-?-?-?-?-?-?-?-?-?-?- GP - no LOF, VB, DFM, ctx. GBS negative. 12/29/20 -?-?-?-?-?-?-?-?-?-?-?-?- 37w 6d 162 lb 2 oz (+122 lb 2 oz) 110/64 Negative -?-?-?-?-?-?-?-?-?-?-?-?- Negative 147 0 -?-?-?-?-?-?-?-?-?-?-?-?- MH-work in for p elvic pressure and low back ache. Noted FHT decel to 110 while checking. NST done: reactive. Keep appt in 3 days. Reviewed S&S labor and kick counts. 01/01/21 -?-?-?-?-?-?-?-?-?-?-?-?- 38w 2d 162 lb 4 oz (+122 lb 4 oz) 112/88 Negative -?-?-?-?-?-?-?-?-?-?-?-?- Negative 115 120 38 -?-?-?-?-?-?-?-?-?-?-?-?- GP - no LOF, VB, DFM, ctx. Low baseline - NST done and reactive. 01/07/21 -?-?-?-?-?-?-?-?-?-?-?-?- 39w 2d 158 lb 8.198 oz (+118 lb 8.198 oz) 113/76 109/68 115/61 107/57 111/69 112/69 111/72 111/64 105/56 117/70 121/81 -?-?-?-?-?-?-?-?-?-?-?-?- -?-?-?-?-?-?-?-?-?-?-?-?- NST FHR Rate Baby A Baseline: 130 ROS Constitutional Constitutional: Reports systems reviewed and no addt'l complaints, except as documented Eyes Eyes: Denies change in vision ENT HEENT: Reports systems reviewed and no addt'l complaints, except as documented; Denies headache(s) Cardiovascular Cardiovascular: Reports systems reviewed and no addt'l complaints, except as documented; Denies chest pain or dyspnea Respiratory/Chest Respiratory/Chest: Reports systems reviewed and no addt'l complaints, except as documented Gastrointestinal Gastrointestinal: Reports systems reviewed and no addt'l complaints, except as documented; Denies abdominal pain Genitourinary Genitourinary: Reports systems reviewed and no addt'l complaints, except as documented, contractions Details: present (irregular) and movement Details: present; Denies dysuria or genital lesions Musculoskeletal Musculoskeletal: Reports systems reviewed and no addt'l complaints, except as documented Neurologic Neurologic: Reports systems reviewed and no addt'l complaints, except as documented Endocrine Endocrinology: Reports systems reviewed and no addt'l complaints, except as documented Vital Signs Vital Signs Vital Signs: Weight Weight: 158 lb 8.198 oz Body Mass Index (BMI) 28.0 Physical Exam Const alert, oriented x3, no apparent distress and healthy appearing HEENT normocephalic and moist oral mucous membranes Head and Scalp: atraumatic Neck full ROM, no lymphadenopathy, supple and thyroid normal General: trachea midline Lymph Lymphatic: no lymphadenopathy noted Chest inspection of chest normal Resp normal respiratory effort Cardio regular rate GI normal to inspection, nondistended, normoactive bowel sounds, soft to palpation and non-tender Inspection: gravid external exam normal Manual OB Exam: estimated gestational size appropriate, presentation cephalic, dilated, effaced and station Extremity normal to inspection General Extremity: Negative for edema Skin no rashes or lesions noted Neuro no focal motor deficits and deep tendon reflexes 2+ bilaterally Motor Exam: strength 5/5 throughout and clonus absent Psych mental status grossly normal Labs Labs Labs: Blood Type A POSITIVE Antibody Screen NEGATIVE Hct 27.6 % (37-47) L Hgb 9.2 g/dL (12.0-15.0) L Obstetrics US Rubella IgG Antibody Reactive (Nonreactive) Hep Bs Antigen Non-Reactive (Nonreactive) Neisseria gonorrhoeae DNA (JULIÁN) Negative (Negative) HIV 1&2 Antibody Non-Reactive (Nonreactive) C.trachomatis DNA (PCR) Negative (Negative) Glucose 1 Hr 50 gm 79 mg/dL (70-140) Rhogam given: No Assessment & Plan (1) H/O section: COMMENT: STAT d/t distress (2) H/O intrauterine growth restriction in prior , currently : COMMENT: circumvallate placenta, multiple lagging long bones in previous , plan growth at 36 weeks- NORMAL US (3) LGSIL (low grade squamous intraepithelial dysplasia): COMMENT: repeat pap in 1 year (at visit) (4) : QUALIFIERS: Weeks of gestation: 38 weeks Qualified Code(s): Z3A.38 - 38 weeks gestation of COMMENT: declines carrier, NIPT low risk. declines AFP screen. NL anatomy RLTCS 01/07 @ 12; GBS NEG (5) Short interval between pregnancies affecting , antepartum: COMMENT: previous delivery 10/2019. (6) Supervision of other normal : COMMENT: PRR PRAVIN: 01/13/21 GIRL Ene PC: Aj BF: Max PLAN: admit for RTLCS.
== END 2021-01-08 15:02 | disposition home or self-care (01) | DRG 788 ==
PROVIDERS: Admitting Provider Obstetrics & Gynecology; Visit Provider Obstetrics & Gynecology
PROC: 10D00Z1 Extraction of Products of Conception, Low, Open Approach (ICD-10-PCS; CPT 59514; principal; 2021-01-07 11:45)
DX: O65.5 Obstructed labor due to abnormality of maternal pelvic organs (principal); O34.211 Maternal care for low transverse scar from previous cesarean delivery; Z3A.38 38 weeks gestation of pregnancy; Z37.0 Single live birth; O16.4 Unspecified maternal hypertension, complicating childbirth; O36.5930 Maternal care for other known or suspected poor fetal growth, third trimester, not applicable or unspecified; Z82.49 Family history of ischemic heart disease and other diseases of the circulatory system; Z83.3 Family history of diabetes mellitus
CPT/HCPCS: 85025; 85027; 86850; 86900; 86901; 87426; 99218; J7120; A4216; G0378; J2405

== ENCOUNTER → 2021-02-19 15:01 | Outpatient (CLI) | payer BC, SELFPAY ==
[2021-02-25 16:39] LABS: HPV Reflexed? NOT INDICATED
== END ==
PROVIDERS: Visit Provider Obstetrics & Gynecology
DX: Z12.4 Encounter for screening for malignant neoplasm of cervix (principal)
CPT/HCPCS: 88175; G0145

== ENCOUNTER → 2022-08-03 | Outpatient (CLI) | payer BC, SELFPAY ==
[2022-08-11 17:18] LABS: HPV Reflexed? NOT INDICATED
== END | disposition home or self-care (01) ==
LOC: LABSPEC 14:54
PROVIDERS: Referring Provider Registered Nurse; Visit Provider Registered Nurse
DX: Z12.4 Encounter for screening for malignant neoplasm of cervix (principal)
CPT/HCPCS: 88175; G0145